=== PATIENT | female | born 1950 | race Caucasian/White ===

== ENCOUNTER → 2018-09-18 | Outpatient (CLI) | payer MEDICARE, OTHER ==
--- NOTE | 2018-09-18 15:51 | 2DMMODE ---
[place] [address] 2 D/M-MODE ECHOCARDIOGRAM Name: GABRIELLEKRYSTIN Room: [facility]#: [id number] Admission: 09/18/18 Attend Phys: Ruth CRENSHAW Santiago Discharge: Date of : 54 Date of Service: 09/18/18 1551 Report #: [id number] THIS REPORT FOR: //name// APPROVED REPORT Study performed: 09/18/2018 09:07:33 EXAM: Comprehensive 2D, Doppler, and color-flow Echocardiogram Patient Location: Out-Patient Status: routine BSA: 1.58 HR: 70 bpm BP: 120/78 mmHg Other Information Study Quality: Excellent Indications Murmur 2D Dimensions IVSd: 8.77 (7-11mm) LVOT Diam: 20.00 (18-24mm) LVDd: 44.04 mm PWd: 9.18 (7-11mm) Ascending Ao: 24.60 (22-36mm) LVDs: 29.90 (25-40mm) Aortic Root: 27.44 mm Volumes Left Atrial Volume (Systole) LA ESV Index: 17.40 mL/m2 Aortic Valve AoV Peak Adam.: 1.24 m/s AO Peak Gr.: 6.16 mmHg LVOT Max P.33 mmHg AO Mean Gr.: 3.06 mmHg LVOT Mean P.81 mmHg LVOT Max V: 1.04 m/s AO V2 VTI: 24.75 cm LVOT Mean V: 0.60 m/s YU (VTI): 2.74 cm2 LVOT V1 VTI: 21.56 cm AI Anson: 2.70 m/s2 AI PHT: 438.54 ms Mitral Valve MV Peak Gr.: 4.95 mmHg MV Mean Gr.: 1.72 mmHg E/A Ratio: 1.65 [place] [address] 2 D/M-MODE ECHOCARDIOGRAM Name: KRYSTIN ANTHONY Room: [facility]#: [id number] Admission: 09/18/18 Attend Phys: Ruth CRENSHAW Santiago Discharge: Date of : 54 Date of Service: 09/18/18 1551 Report #: [id number] MV Decel. Time: 211.34 ms MV E Max Adam.: 0.93 m/s MV PHT: 61.29 ms MVA (PHT): 3.59 cm2 TDI E/Lateral E': 5.47 E/Medial E': 9.30 Medial E' Adam.: 0.10 m/s Lateral E' Adam.: 0.17 m/s Pulmonary Valve PV Peak Adam.: 0.78 m/s PV Peak Gr.: 2.42 mmHg Tricuspid Valve RAP Estimate: 5.00 mmHg TR Peak Gr.: 17.47 mmHg RVSP: 22.47 mmHg PA Pressure: 22.47 mmHg Left Ventricle The left ventricle is normal size. There is normal LV segmental wall motion. There is normal left ventricular wall thickness. Left ventricular systolic function is normal. The left ventricular ejection fraction is within the normal range. LVEF is 55-60%. The left ventricular diastolic function is normal. Right Ventricle The right ventricle is normal size. The right ventricular systolic function is normal. Atria The left atrium size is normal. The right atrium size is normal. Aortic Valve Aortic valve is mildly calcified. Mild aortic regurgitation. There is no aortic valvular stenosis. Mitral Valve The mitral valve is normal in structure. Moderate mitral regurgitation. No evidence of mitral valve stenosis. There is mild mitral valve prolapse. Tricuspid Valve The tricuspid valve is normal in structure. Mild tricuspid regurgitation. estimated pa pressure 25 [place] [address] 2 D/M-MODE ECHOCARDIOGRAM Name: KRYSTIN ANTHONY Room: [facility]#: [id number] Admission: 09/18/18 Attend Phys: Ruth CRENSHAW Santiago Discharge: Date of : 54 Date of Service: 09/18/18 1551 Report #: [id number] Pulmonic Valve The pulmonary valve is normal in structure. There is no pulmonic valvular regurgitation. Great Vessels The aortic root is normal in size. IVC is normal in size and collapses >50% with inspiration. Pericardium There is no pericardial effusion. <Conclusion> LVEF is 55-60%. Aortic valve is mildly calcified. Mild aortic regurgitation. Moderate mitral regurgitation. <ELECTRONICALLY SIGNED> By: Austin Thapa MD, FACC 09/18/18 1551 1551 1551 Austin Thapa MD, FACC /INF
== END ==
LOC: M.CRD 08:38
DX: I08.3 Combined rheumatic disorders of mitral, aortic and tricuspid valves (principal); R55 Syncope and collapse

== ENCOUNTER → 2021-04-12 | Outpatient (CLI) | payer MEDICARE, OTHER | LOC: M.ULTRA 12:58 | PROVIDERS: ATTEND Registered Nurse Diabetes Educator | DX: I65.23 Occlusion and stenosis of bilateral carotid arteries (principal); R55 Syncope and collapse; R42 Dizziness and giddiness; E16.2 Hypoglycemia, unspecified ==

== ENCOUNTER → 2021-10-18 | Outpatient (CLI) | payer OTHER | LOC: M.CT 09:46 | PROVIDERS: ATTEND Internal Medicine Cardiovascular Disease | DX: Z13.6 Encounter for screening for cardiovascular disorders (principal); I25.10 Atherosclerotic heart disease of native coronary artery without angina pectoris ==